=== PATIENT | female | born 1975 | race Hispanic/Latino ===

== ENCOUNTER 2022-02-08 10:55 | Emergency (ER) | payer SELFPAY ==
--- OUTSIDE RECORDS SUMMARY | 2022-02-08 10:58 | XMS REPORT | Continuity of Care Document ---
:1975 Author Organization [facility] t Address [address] [place] [address] Care Team Providers Name Role Phone Sharri Chung Primary Care Physician [phone] SHARRI ANDRES Attending Clinician Unavailable ROWENA JOHNSTON Attending Clinician Unavailable BUSHRA ADAN Attending Clinician Unavailable Rowena Johnston MD Attending Clinician Mimi Patel Attending Clinician Aster Juan PHD Attending Clinician ASTER JUAN Attending Clinician Unavailable 2, [employer] Attending Clinician Unavailable Luther HACKETT Attending Clinician Unavailable Luther Kearney Attending Clinician PRATIBHA RODRIGUEZ Attending Clinician Unavailable Pratibha Kline Attending Clinician [phone] Doctor Unassigned, [place] Attending Clinician Unavailable Lona COLEMAN, [place] Maldonado Attending Clinician Unavailable JEAN PALOMO Attending Clinician Unavailable Jean Freedman Attending Clinician Bala Turner Attending Clinician CRISTOBAL RAMIREZ Attending Clinician Unavailable CRISTOBAL RAMIREZ Attending Clinician Unavailable Maryanne BRYANT, Monica Kramer Attending Clinician Nurse, Adc Pob Immunization Attending Clinician Unavailable Coy Rodriguez MD Attending Clinician COY RODRIGUEZ Attending Clinician Unavailable Crow Garcia DO Attending Clinician Christianne Navarro Attending Clinician CHRISTIANNE DIAZ Attending Clinician Unavailable Sharri Chung Attending Clinician Luther HACKETT Admitting Clinician Unavailable JEAN PALOMO Admitting Clinician Unavailable Payers Payer Name Policy Type Policy Number Effective Date Expiration Date Viktoriya oseguera [employer] [id number] 2021 ZECHARIAH 0-100% 00:00:00 Problems Condition Condition Condition Status Onset Resolution Last Treating Co mments Source Name Details Category Date Date Treatment Clinician Date Vertigo Vertigo Disease Active Overview: Univ ers 3-11 Formattin ity of 00:00: g of this [place] 00 note Medical might be Branch different from the original. Reports she is on meds Morbid Morbid Disease Active 2018-03 Univers obesity obesity 0-24 ity of 00:00: [address] Branch Other Other Disease Active 2018-03 Univers depression depression 0-24 it y of 00:00: [address] Encounter Encounter Disease Active 2017-03 Uni vers for for 0-25 [place]y [place] sam[place] samra 00 Medical management management Br anch , , unspecifie unspecifie d type d type Obesity, Obesity, Disease Active Unive rs unspecifie unspecifie 9-04 it y of d d 00:00: [place] classifica classifica 00 Me dical tion, tion, Branch unspecifie unspecifie d obesity d obesity type, type, unspecifie unspecifie d whether d whether serious serious comorbidit comorbidit y present y present BMI BMI Disease Resolve 2017-032019-01-06 2019-01-06 Univers 39.0-39.9, 39.0-39.9, d 0-25 00:00:00 20:55:49 ity of adult adult 00:00: [address] Routine Routine Disease Resolve 2018-01-06 2018-01-06 Univers d 12-11 00:00:00 23:00:06 [place] of [place] Disease Resolve 2017-12-11 2017-12-11 Univers (spontaneo (spontaneo d 11-19 00:00:00 19:12:48 [place] vaginal [place] vaginal [place] delivery[place] delivery[place] 00 [facility] Single Single Disease Resolve 2017-12-11 2017-12-11 Univers live live d 11-19 00:00:00 19:12:45 ity of 00:00: [place] [address] [facility] Branch Saurabh Troup Disease Resolve 2017-12-11 2017-12-11 Univers [facility] d 9 00:00:00 19:12:29 ity of contractio contractio [place] n n 00 [facility] Branch GBS (group GBS (group Disease Resolve 2017-12-11 2017-12-11 Univers B B d 8-23 00:00:00 19:12:34 ity of streptococ streptococ [place] cus[place] cus) 00 Medical infection infection Bran ch Inmate in Inmate in Disease Resolve 2017-12-11 2017-12-11 Univers correction correction d 7-05 00:00:00 19:12:38 ity of al al 00:00: [place] facility facility 00 Medica l Branch Round Round Disease Resolve 2017-12-11 2017-12-11 Univers ligament ligament d 6-06 00:00:00 19:12:30 it y of pain pain 00:00: [place] [address] Medical Branch Pyelectasi Pyelectasi Disease Resolve 2017-12-11 2017-12-11 Univers s of fetus s of fetus d 5-14 00:00:00 19:12:44 ity of on on 00:00: [place] 00 Medica l ultrasound ultrasound Br anch Flu Flu Disease Resolve 2017-12-11 2017-12-11 Univers vaccine vaccine d 04-16 00:00:00 19:12:33 ity of need need 00:00: [place] 00 Medical Branch Supervisio Supervisio Disease Resolve 2017-12-11 2017-12-11 Univers n of n of d 04-15 00:00:00 19:12:47 ity of high-risk high-risk 00:[place] Med[place] jesus of elderly of elderly Br anch multigravi multigravi da da AMA AMA Disease Resolve 2017-12-11 2017-12-11 Univers (advanced (advanced d 04-15 00:00:00 19:12:31 ity of maternal maternal 00:00: [place] age) age) 00 Medical multigravi multigravi Br anch da 35+ da 35+ Multiparit Multiparit Disease Resolve 2017-12-11 2017-12-11 Univers y y d 04-15 00:00:00 19:12:39 ity of 00:00: [place] 00 Medical Branch History of History of Disease Resolve 2017-12-11 2017-12-11 Univers miscarriag miscarriag d 04-15 00:00:00 19:12:35 ity of e e 00:00: [place] 00 Medical Branch BV BV Disease Resolve 2017-10-27 2017-10-27 Univers (bacterial (bacterial d - 00:00:00 19:00:16 ity of vaginosis) vaginosis[place] Vaginal Vaginal Disease Resolve 2017-10-27 2017-10-27 Univers yeast yeast d 05-13 00:00:00 19:00:13 ity of infection infection [place] Miscarriag Miscarriag Disease Resolve 2017-04-15 2017-04-15 Univers e e d 10-15 00:00:00 22:20:44 ity of 00:00: [place] 00 Medical Branch Retained Retained Disease Resolve 2017-04-15 2017-04-15 Univers products products d 10-15 00:00:00 22:20:43 it y of of of 00:00: [place] conception conception 00 Me dical without without Branch hemorrhage hemorrhage Maternal Maternal Disease Resolve 2016-10-15 2016-10-15 Univers morbid morbid d 09-24 00:00:00 19:55:31 ity of obesity, obesity, 00:00: [place] antepartum antepartum 00 Me dical , , Branch unspecifie unspecifie d d trimester trimester AMA AMA Disease Resolve 2016-10-15 2016-10-15 Univers (advanced (advanced d 09-24 00:00:00 19:55:30 ity of maternal maternal 00:00: [place] age) age) 00 Medical multigravi multigravi Br anch da 35+, da 35+, unspecifie unspecifie d d trimester trimester High risk High risk Disease Resolve 2016-10-15 2016-10-15 Univers , , d 09-24 00:00:00 19:55:28 ity of antepartum antepartum [place] Spotting Spotting Disease Resolve 2016-10-15 2016-10-15 Univers in early in early d 09-24 00:00:00 19:55:33 [place] Depo-Prove Depo-Prove Disease Resolve 2016-09-24 2016-09-24 Univers ra ra d 09-05 00:00:00 14:42:12 ity of contracept [place]pt [place] sam[place] status samra status 00 Me dical Branch Normal Normal Disease Resolve 2015-09-06 2015-09-06 Univers delivery delivery d 12-02 00:00:00 17:51:45 it y of at term at term 00:00: [place] 00 Medical Branch Tubal Tubal Disease Resolve 2015-09-06 2015-09-06 Univers ligation ligation d 11-13 00:00:00 17:53:31 it y of status status 00:00: [place] 00 Medical Branch GBS (group GBS (group Disease Resolve 2015-09-06 2015-09-06 Univers B B d 2- 00:00:00 17:51:39 ity of streptococ streptococ [place] cus[place] UTI cus) UTI 00 Medica l complicati complicati Br anch ng ng Active Active Disease Resolve 2014-12-02 2014-12-02 Univers labor labor d 9 00:00:00 12:26:30 ity of 00:00: [place] 00 [facility] Supervisio Supervisio Disease Resolve 2014-12-02 2014-12-02 Univers n of n of d 2-05 00:00:00 12:26:33 ity of high-risk high-risk 00:[place] Medi jesus of elderly of elderly Br anch multigravi multigravi da da Supervisio Supervisio Disease Resolve 2014-12-01 2014-12-01 Univers n of n of d 11-30 00:00:00 05:47:03 ity of normal normal 00:00: [place] 00 [facility] Branch Lower back Lower back Disease Resolve 2014-12-01 2014-12-01 Univers pain pain d 3-05 00:00:00 05:47:07 ity of 00:00: [place] 00 [facility] Obesity Obesity Disease Resolve 2014-12-01 2014-12-16 Univers complicati complicati d 2-05 00:00:00 00:27:29 ity of ng ng 00:00: [place] , , 00 Me dical childbirth childbirth Br anch , or , or puerperium puerperium , , antepartum antepartum Normal Normal Disease Resolve 2011-032014-04-20 2014-04-20 Univers delivery delivery d - 00:00:00 16:28:22 it y of 00:00: [place] 00 [facility] AMA AMA Disease Resolve 2011-032014-04-20 2014-04-20 Univers (advanced (advanced d 04-04 00:00:00 16:28:24 ity of maternal maternal 00:00: [place] age) age) 00 Medical multigravi multigravi Br anch da 35+ da 35+ Other Other Disease Resolve 2011-032012-02-04 Univ ers threatened threatened d - 00:00:00 ity of labor, labor, 00:00: [place] antepartum antepartum 00 Me dical Branch Tubal Tubal Disease Resolve 2011-032012-02-04 Univ ers ligation ligation d 04-04 00:00:00 ity of status status 00:00: 00 Medical Branch Allergies, Adverse Reactions, Alerts Allergy Allergy Status Severity Reaction(s) Onset Inactive Treating Comm ents Source Name Type Date Date Clinician NO KNOWN Drug Active Univers ALLERGIE Class ity of S [facility] Social History Social Habit Start Date Stop Date Quantity Comments Source Exposure to 2021-08-16 2021-08-26 Not sure [facility] SARS-CoV-2 (event) 00:00:00 14:54:00 Medica l Branch Alcohol intake 2021-08-26 2021-08-26 0 /d [facility] 00:00:00 00:00:00 [facility] Tobacco use and 2012-02-03 2012-02-03 Never used [facility] exposure 00:00:00 00:00:00 Medical Branch Sex [birth year] [facility] 00:00:00 00:00:00 Medical [place] Smoking Status Start Date Stop Date Source Never smoker [facility] Medications Ordered Filled Start Stop Current Ordering Indication Dosage Frequency Signature Comments Components Source Medication Medication Date Date Medication? Clinician (SIG) Name Name propranoloL Yes [id number] 10mg Take 1 Univers 10 mg 6-13 tablet by ity of tablet 00:00: mouth 00 daily. Medical Branch buPROPion Yes [id number] 150mg Take 1 U nivers XL 3-11 tablet by ity of (WELLBUTRIN 00:00: mouth [place] XL) 150 mg 00 daily. Medical 24 hr Branch tablet naproxen 2020-03 Yes [id number] 500mg Take 1 Un krystal 500 mg 1-18 tablet by ity of tablet 00:00: mouth 2 (two) Medical times Branch daily with meals. methocarbam 2020-03 Yes [id number] 500mg Take 1 Univers oL 500 mg 1-18 tablet by ity o f tablet 00:00: mouth 4 00 (four) Medical times Branch daily as needed (muscle pain). methylPREDN Yes [id number] Take by Univers ISolone 4 6-30 mouth ity of mg tablets 00:00: [place]INSTRU [place] CTIONS. Medical follow Branch package directions meclizine Yes [id number] 25mg Take 1 U nivers 25 mg 6-29 tablet by ity of tablet 00:00: mouth [place] 00 every 6 Medical (six) Branch hours as needed for Dizziness. Immunizations Ordered Filled Immunization Date Status Comments Sourc e Immunization Name Name SARS-COV-2 COVID-19 2020-07-19 Completed Unive rsity of PFIZER VACCINE 00:00:00 [facility] SARS-COV-2 COVID-19 2020-07-19 Completed Unive rsity of PFIZER VACCINE 00:00:00 [facility] SARS-COV-2 COVID-19 2020-06-25 Completed Unive rsity of PFIZER VACCINE 00:00:00 [facility] SARS-COV-2 COVID-19 2020-06-25 Completed Unive rsity of PFIZER VACCINE 00:00:00 [facility] Influenza Virus 2019-01-06 Completed Universit y of Vaccine Quad .5 mL 00:00:00 [facility] 6+ MO Branch Influenza Virus 2019-01-06 Completed Universit y of Vaccine Quad .5 mL 00:00:00 [facility] 6+ MO Branch TDAP 2017-09-03 Completed University of 00:00:00 [facility] TDAP 2017-09-03 Completed University of 00:00:00 [facility] Influenza Virus 2017-04-15 Completed Universit y of Vaccine Quad IM 3+ 00:00:00 [facility] Influenza Virus 2017-04-15 Completed Universit y of Vaccine Quad IM 3+ 00:00:00 [facility] TDAP 2014-09-29 Completed University of 00:00:00 [facility] 2014-09-29 Completed University of 00:00:00 [facility] Vital Signs Vital Name Observation Time Observation Value Comments Source Body temperature 2021-08-26 20:07:00 36.67 Patt [facility] Body height 2021-08-26 20:07:[address] [facility] Body weight 2021-08-26 20:07:[address] [facility] BMI 2021-08-26 20:07:00 40.44 kg/m2 [facility] Procedures Procedure Date / Time Performed Performing Clinician Sourc e SARS-COV-2 COVID-19 2020-07-19 19:09:45 Doctor Unassigned, No Un iversity of [place] VACCINE,0.3ML,IM Name Medical Branch (PFIZER) Plan of Care Planned Activity Planned Date Details Comments Source Future Scheduled 2027-09-04 DTaP,Tdap,and Td Univers [facility] Test 00:00:00 Vaccines (3 - Td) Medical Br anch [code = DTaP,Tdap,and Td Vaccines (3 - Td)] Future Scheduled 2020-11-14 [facility] (Season Ended) [code Medical Branch = INFLUENZA VACCINE (Season Ended)] Future Scheduled 2019-04-20 Screening for [facility] Test 00:00:00 malignant neoplasm Medical B ranch of cervix (procedure) [code = 711005983] Future Scheduled 2016 Screening for [facility] Test 00:00:00 malignant neoplasm Medical B ranch of breast (procedure) [code = 071533249] Future Scheduled 1994-01-06 Hepatitis C [facility] Test 00:00:00 screening Medical Branch (procedure) [code = 683548088] Future Scheduled 1988 Depression screening Uni [facility] Test 00:00:00 (procedure) [code = Medical Branch 834835304] Encounters Start End Encounter Admission Attending Care Care Encounter Source Date/Time Date/Time Type Type Clinicians Facility Department ID 2021-01-14 Emergency [facility] [id number] [facility] 2022-05-26 Outpatient R DMITRY [facility] [id number] Univers 15:00:00 15:00:00 SHARRI ity o f [facility] 2022-05-26 2022-05-26 Outpatient R [facility] [id number] Univers 10:00:00 10:00:00 ity [facility] 2021-09-25 2021-09-25 Outpatient R [facility] [id number] Univers 13:45:00 13:45:00 ity [facility] 2021-09-23 2021-09-23 [id number] Univers 14:30:00 14:30:00 [facility] 2021-09-09 2021-09-09 [facility] [id number] Univers 15:15:00 15:15:00 BUSHRA cortez [facility] 2021-08-26 2021-08-26 Office [facility] [id number] Univers 15:00:00 15:30:00 Visit Rowena AGUIRRE [id number] i ty of [place] [id number] [facility] 144 Branch 2021-08-26 2021-08-26 [id number] Univers 15:00:00 15:00:00 ROWENA cortez [facility] 2021-08-05 2021-08-05 Ancillary Mimi Loza [facility] [id number] Univers 15:00:00 17:00:00 Visit Aster Juan 350.1.13.1 0 ity [place]2.[place] [id number] [facility] 371 Branch 2021-08-05 2021-08-05 Outpatient R DRAKE [facility] [id number] Univers 15:00:00 15:00:00 ASTER cortez [facility] 2021-08-05 2021-08-05 Ancillary Dia [employer] [facility] [id number] Univers 11:15:00 12:00:00 Visit Aster Juan 350.1.13.1 0 ity [place]2.[place] [id number] [facility] 141 Branch 2021-08-05 2021-08-05 [facility] [id number] Univers 11:15:00 11:15:00 ASTER cortez [facility] 2021-07-22 2021-07-22 Office [facility] [id number] Univers 10:15:00 10:30:00 Visit Rowena CARLA 350.1.13.10 i ty [place].2.[place] [phone] [facility] 144 Branch 2021-07-22 2021-07-22 Outpatient R VICKIE [facility] [id number] Univers 10:15:00 10:15:00 ROWENA ity [facility] 2021-07-22 2021-07-22 Outpatient R VICKIE [facility] [id number] Univers 10:15:00 10:15:00 ROWENA ity [facility] 2021-07-14 2021-07-14 Emergency X LEW, K [facility] ERT [id number] Univers 15:32:00 21:41:00 ity [facility] 2021-07-14 2021-07-14 Emergency LewLuther [facility] [id number] Univers 15:32:00 21:41:00 Barbara [place] 350.1.13.10 i [facility] 4.2.7.2.686 [place] [facility] [phone] [facility] 084 Branch 2021-07-14 2021-07-14 Emergency X LEW, K [facility] ERT [id number] Univers 15:32:00 21:41:00 ity [facility] 2021-07-02 2021-07-02 Outpatient R WYATT [facility] [id number] Univers 10:00:00 10:54:47 PRATIBHA cortez o f [facility] 2021-07-02 2021-07-02 [facility] [id number] Univers 10:00:00 10:54:47 Visit Pratibha Pleitez [employer]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 ENGINEER 350.1.13.10 ity [facility] 4.2.7.2.686 Say as MATERNAL [phone] Med ical & CHILD [address] [place] [address] 2021-07-02 2021-07-02 Outpatient Vadim RODRIGUEZ [facility] [id number] Univers 10:00:00 10:54:47 PRATIBHA cortez o f [facility] 2021-06-10 2021-06-10 Outpatient Vadim RODRIGUEZ [facility] [id number] Univers 10:15:00 10:15:00 PRATIBHA tangy o f [facility] 2021-06-10 2021-06-10 Outpatient R AVELINAPE, [facility] [id number] Univers 10:15:00 10:15:00 PRATIBHA tangy o f [facility] 2021-05-24 2021-05-24 Outpatient R AKINELIZABETHPE, [facility] [id number] Univers 14:15:00 15:14:27 PRATIBHA tangy o f [facility] 2021-05-24 2021-05-24 Office Wyatt, [facility] [id number] Univers 14:15:00 15:14:27 Visit Pratibha Pleitez 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 ENGINEER 350.1.13.10 ity [facility] 4.2.7.2.686 Say as MATERNAL [id number] Med ical & CHILD [address] [place] [address] 2021-05-24 2021-05-24 Orders Doctor ZULETA [id number] Univers 00:00:00 00:00:00 Only Unassigned, MAYDA 350.1.13.10 ity of [facility] 4.2.7.2.686 Say as [phone] [facility] 009 [place] 2021-05-20 2021-05-20 Outpatient R WYATT, [facility] [id number] Univers 12:45:00 12:45:00 PRATIBHA cortez o [facility] 2021-04-13 2021-04-13 Outpatient R [facility] [id number] Univers 11:30:00 11:30:00 ity of [facility] 2021-02-01 2021-02-01 Letter MERLYN Zamorano [id number] Univers 00:00:00 00:00:00 (Out) Marion OHARA 350.1.13.10 it y of [facility] 4.2.7.2.686 Say as [id number] [facility] 019 Branch 2021-01-31 2021-01-31 Emergency X [facility] ERT [id number] Univers 19:16:00 22:28:00 JEAN ity of [facility] 2021-01-31 2021-01-31 Emergency [facility] [id number] Univers 19:16:00 22:28:00 Jean HAGEN 350.1.13.10 i ty [facility] 4.2.7.2.686 [facility] [id number] [address] 2020-12-26 2020-12-26 Ambulatory nullFlavo MNA [id number] Memoria 20:30:00 20:30:00 Pre-Reg r Neurology 00 [place] 2020-12-26 2020-12-26 Outpatient MHIE MHIE [id number] Memoria 15:30:00 15:30:00 00 [place] 2020-12-26 2020-12-26 Outpatient [facility]ARS [id number] 15:30:00 15:30:00 Bala 00 Abhi 2020-11-27 2020-11-27 Outpatient CRISTOBAL MARTINEZ [facility] [id number] Univers 13:40:00 13:40:00 CRISTOBAL RAMIREZ [facility] 2020-11-27 2020-11-27 Outpatient CRISTOBAL MARTINEZ [facility] [id number] Univers 08:00:00 08:00:00 CRISTOBAL RAMIREZ [facility] 2020-09-11 2020-09-11 Emergency [facility] [id number] Univers 15:05:00 18:50:00 Monica Hagen 350.1.13.10 ity [facility] 4.2.7.2.686 [facility] [id number] [address] 2020-07-19 2020-07-19 Outpatient Vadim RODRIGUEZ [facility] [id number] Univers 13:00:00 13:00:00 COY [facility] 2020-06-25 2020-06-25 Outpatient Vadim RODRIGUEZ [facility] [id number] Univers 13:00:00 13:00:00 COY enedelia [facility] 2020-06-23 2020-06-23 Outpatient Vadim RODRIGUEZ [facility] [id number] Univers 08:30:00 08:30:00 COY cortez [facility] 2020-05-31 2020-05-31 [facility] [id number] Univers 00:00:00 00:00:00 Outreach Crow HOMER 350.1.13.10 i ty of [facility] 4.2.7.2.686 Garrett SAUCEDO [id number] [address] 2019-12-27 2019-12-27 Outpatient R R [facility] [id number] Univers 09:00:00 09:00:00 PRATIBHA cortez o f [facility] 2019-12-27 2019-12-27 Outpatient R [facility] [id number] Univers 08:30:00 08:30:00 ity [facility] 2019-11-24 2019-11-24 Telephone [facility] [id number] Univers 00:00:00 00:00:00 Pratibha Pleitez W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 ENGINEER 350.1.13.10 ity of [facility] 4.2.7.2.686 Say as MATERNAL [id number] Med ical & CHILD [address] [place] [address] 2019-10-31 2019-10-31 Telephone [facility] [id number] Univers 00:00:00 00:00:00 Christianne Simpson W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 ENGINEER 350.1.13.10 it y of [facility] 4.2.7.2.686 Say as MATERNAL [phone] Med ical & CHILD [address] [place] [address] 2019-10-27 2019-10-27 Office [facility] [id number] Univers 08:22:49 09:23:38 Visit Christianne Simpson W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 ENGINEER 350.1.13.10 it y of [facility] 4.2.7.2.686 Say as MATERNAL [id number] Med ical & CHILD [address] [place] [address] 2019-10-27 2019-10-27 [facility] [id number] Univers 08:15:00 08:15:00 CHRISTIANNE cortez [facility] 2019-10-27 2019-10-27 Orders Doctor ZULETA [id number] Univers 00:00:00 00:00:00 Only Unassigned, MAYDA 350.1.13.10 ity of [place] [facility] 4.2.7.2.686 Say as [id number] [address] 2019-10-25 2019-10-25 Telephone LUIS FERNANDO Andres [id number] Univers 00:00:00 00:00:00 Rosmichellendargenis R W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 ENGINEER 350.1.13.10 ity of [facility] 4.2.7.2.686 Say as MATERNAL [phone] Med ical & CHILD 107 [facility] Results Test Description Test Time Test Comments Results Result Comments Source TSH, THIRD GENERATION 2021-07-05 05:58:41 Test Item Value Reference Range Interpretation Comme nts TSH, THIRD GENERATION (test code = 2821) 2.050 UIU/ML 0.400-4.100 COMPREHENSIVE METABOLIC [id number] 04:36:06 Test Item Value Reference Range Interpretation Comments GLUCOSE (test code = 88 MG/DL 70-99 2216) BUN (test code = 10 MG/DL 6-20 2207) CREATININE (test 0.63 MG/DL 0.60-1.30 code = 2214) eGFR (2020 CKD-EPI) 111 >60 (test code = 10386) ML/MIN/1.73 CALC BUN/CREAT (test 16 RATIO 6-28 code = 2235) SODIUM (test code = 139 MEQ/L 050-009 6491) POTASSIUM (test code 5.0 MEQ/L 3.5-5.4 = 2227) CHLORIDE (test code 104 MEQ/L 95-107 = 2215) CARBON DIOXIDE (test 23 MEQ/L 19-31 code = 2206) CALCIUM (test code = 9.6 MG/DL 8.5-10.5 2208) PROTEIN, TOTAL (test 7.0 G/DL 6.1-8.3 code = 2229) ALBUMIN (test code = 4.5 G/DL 3.5-5.2 2200) CALC GLOBULIN (test 2.5 G/DL 1.9-3.7 code = 2240) CALC A/G RATIO (test 1.8 RATIO 1.0-2.6 code = 2234) BILIRUBIN, TOTAL 0.5 MG/DL See_Comment [Automated message] (test code = 2206) The syste m which generated this result transmit gin reference range : <=1.2. The refe rence range was not u sed to interpret th is result as normal/abnormal . ALKALINE PHOSPHATASE 96 U/L 40-116 (test code = 2203) AST (test code = 20 U/L 9-40 2217) ALT (test code = 28 U/L 5-40 2218) LIPID [id number] 04:36:06 Test Item Value Reference Range Interpretation Comments CHOLESTEROL (test 169 MG/DL <200 code = 2210) TRIGLYCERIDES (test 73 MG/DL <150 code = 2232) HDL CHOLESTEROL (test 54 MG/DL >39 code = 2220) CALC LDL CHOL (test 99 MG/DL <100 NOTE: C ALCULATED LDL code = 2237) IS BASED ON NEO-MORRIS METHOD WHICHINCLUDES ADJUSTABLE TRIGLYCERIDE:VL DL CHOLESTEROL RAT IO.THIS FACTOR VARIES B Y MEASURED TRIGLY CERIDE AND NON-HDLCHOL ESTEROL CONCENTRATIONS WITH INCREASED CALCU LATED LDL SEENIN HIGH ER TRIGLYCERIDE OR LOWER NON-HDL SPECIME NS. FOR MOREINFORMATION , SEE CLIENT ANNOUNCE MENT AT [email or web address] LDL/HDL 1.83 RATIO <3.22 (test code = 2237) HEMOGLOBIN [id number] 03:04:21 Test Item Value Reference Range Interpretation Comments HEMOGLOBIN A1c (test 5.5 % 4.2-5.6 UNLESS OTHERWISE code = 65702) INDICATED, ALL TESTING PERFORMED [facility] [address] [place] [id number] DAMIR DEXTER DIRECTOR: Xiomara BRENNANIA NUMBER [id number] CAP ACCREDITATION N O. [id number]
[2022-02-08] MEDS ORDERED: ONDANSETRON 4 MG/2 ML VIAL ONE (11:30)
[2022-02-08] MEDS ORDERED: NA CHLORIDE 0.9% 1,000 ML ONE ×2 (11:30→14:10)
[2022-02-08 11:35] LABS: Urine Blood 2+ (Negative); Urine Glucose Negative (Negative); Urine Protein 1+ (Negative); Urine Specific Gravity >=1.030 (1.005-1.030)
[2022-02-08 11:51] LABS: Hematocrit 41.5 % (36.0-45.0); Lymphocytes % 8.8 % (15.3-44.8); MCV 86.9 fL (80-100); MPV 9.1 fL (7.6-11.3); RBC Red Blood Cell Count 4.77 M/uL (3.86-4.86)
[2022-02-08 12:26] LABS: SARS-COV-2 RT PCR NEGATIVE (NEGATIVE)
[2022-02-08] MEDS ORDERED: MORPHINE 4 MG/ML SYR ONE (12:29)
[2022-02-08 12:48] LABS: Albumin 3.3 g/dL (3.4-5.0); Bilirubin Total 0.7 mg/dL (0.2-1.0); Potassium 3.5 mmol/L (3.5-5.1); Protein, Total 7.1 g/dL (6.4-8.2)
--- NOTE | 2022-02-08 13:32 | RAD REPORT ---
EXAM DESCRIPTION: CTAbdomen Pelvis W Contrast - 02/08/2022 1:23 pm CLINICAL HISTORY: abdominal pain, diarrhea COMPARISON: <Comparisons> TECHNIQUE: CT of the abdomen and pelvis was performed with IV contrast. All CT scans are performed using dose optimization technique as appropriate and may include automated exposure control or mA/KV adjustment according to patient size. FINDINGS: Lower chest: No acute abnormality. Small hiatal hernia Liver: Hepatic steatosis Biliary: No biliary ductal dilatation. Stomach: No significant focal abnormality. Duodenum: No significant focal abnormality. Pancreas: No significant abnormality. Spleen: No significant abnormality. Adrenal: No suspicious lesions. Kidney/ureter: No hydronephrosis. No renal calculi. Retroperitoneum: No retroperitoneal adenopathy. Vascular: No aneurysm. Bowel: Normal appendix. Fluid present within the colon and small bowel.. Peritoneum: No ascites or free air. Small fat and umbilical hernia Bladder: Grossly unremarkable. Reproductive: No adnexal masses. Bones: No acute fracture. Other: n/a IMPRESSION: Nonspecific findings that may reflect a gastroenteritis. No bowel obstruction. Normal ap pendix.
[2022-02-08] MEDS ORDERED: METOCLOPRAMIDE 10 MG/2mL INJ ONE (13:35)
[2022-02-08] MEDS ORDERED: NA CHLORIDE 0.9% 100 ML IV ONE (13:35)
[2022-02-08] MEDS ORDERED: DIPHENHYDRAMINE 50 MG/ML VIAL ONE (13:35)
[2022-02-08 13:39] LABS: Urine Specific Gravity/Preg >1.030 (1.005-1.030)
[2022-02-08 13:40] LABS: Urine Specific Gravity/Preg >1.030 (1.005-1.030)
[2022-02-08] MEDS ORDERED: KETOROLAC 30 MG/ML INJ ONE (14:10)
--- NOTE | 2022-02-08 15:05 | ER ---
Nurse's Notes [facility] Name: Shaniqua Burrell Age: 47 yrs Sex: Female : 1975 Arrival Date: 02/08/2022 Time: 10:59 Bed 24 Private MD: Diagnosis: Gastroenteritis Presentation: 02/08 11:15 Chief complaint: Patient states: Diffuse abdominal pain, nausea, diarrhea, and fever kb3 since last night. Pt reports abdominal pain has resolved but she now has a headache. Coronavirus screen: Vaccine status: Patient reports being unvaccinated. Client denies travel out of the [place] in the last 14 days. Ebola Screen: Patient negative for fever greater than or equal to 101.5 degrees Fahrenheit, and additional compatible Ebola Virus Disease symptoms Patient denies exposure to infectious person. Patient denies travel to an Ebola-affected area in the 21 days before illness onset. Initial Sepsis Screen: Does the patient meet any 2 criteria? No. Patient's initial sepsis screen is negative. Does the patient have a suspected source of infection? No. Patient's initial sepsis screen is negative. Risk Assessment: Do you want to hurt yourself or someone else? Patient reports no desire to harm self or others. Onset of symptoms was February 07, 2022. 11:15 Method Of Arrival: Ambulatory kb3 11:15 Acuity: HERMILA 3 kb3 Triage Assessment: 11:18 General: Appears in no apparent distress. Behavior is calm, cooperative. Pain: kb3 Complains of pain in forehead Pain does not radiate. Pain currently is 10 out of 10 on a pain scale. Quality of pain is described as aching. Neuro: Level of Consciousness is awake, alert, Oriented to person, place, time, situation, Hydrochloric Area Supervisor are equal bilaterally Moves all extremities. Gait is steady, Speech is normal, Facial symmetry appears normal, Reports headache. GI: Abdomen is round Bowel sounds present X 4 quads. Abd is soft and non tender Reports diarrhea, nausea. 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 Last tetanus immunization: unknown. - Social history:: Smoking status: Patient denies any tobacco usage or history of. Screenin:44 Abuse screen: Denies threats or abuse. Denies injuries from another. Nutritional tp1 screening: No deficits noted. Tuberculosis screening: No symptoms or risk factors identified. Fall Risk None identified. Assessment: 11:35 General: Appears in no apparent distress. uncomfortable, Behavior is calm, cooperative. tp1 Pain: Complains of pain in abdomen, head, and eyes Pain does not radiate. Pain currently is 8 out of 10 on a pain scale. Quality of pain is described as sharp, Is continuous. Neuro: Level of Consciousness is awake, alert, obeys commands, Oriented to person, place, time, situation. Cardiovascular: Patient's skin is warm and dry. Respiratory: Airway is patent Respiratory effort is even, unlabored. GI: Abdomen is obese, Abd is soft X 4 quads Abdomen is tender to palpation X 4 quads. Reports diarrhea, nausea, Patient currently denies vomiting. : No signs and/or symptoms were reported regarding the genitourinary system. EENT: No signs and/or symptoms were reported regarding the EENT system. Derm: Skin is pink, warm \T\ dry. Musculoskeletal: Circulation, motion, and sensation intact. 12:20 Reassessment: Patient appears in no apparent distress at this time. No changes from tp1 previously documented assessment. Patient and/or family updated on plan of care and expected duration. Pain level reassessed. Patient is alert, oriented x 3, equal unlabored respirations, skin warm/dry/pink. states nausea has decreased but is still CO ABD pain, provider notified. 13:30 Reassessment: Patient appears in no apparent distress at this time. No changes from tp1 previously documented assessment. Patient is alert, oriented x 3, equal unlabored respirations, skin warm/dry/pink. continues to CO headache, provider notified. 14:04 Reassessment: continues to CO headache rates 8/10, provider notified. tp1 14:40 Reassessment: Patient appears in no apparent distress at this time. No changes from tp1 previously documented assessment. Patient is alert, oriented x 3, equal unlabored respirations, skin warm/dry/pink. states pain is decreased. 15:12 Reassessment: discharge pending completion of IV fluids. tp1 Vital Signs: 11:15 BP 120 / 84; Pulse 99; Resp 20; Temp 99.; Pulse Ox 100% ; Weight 90.72 kg; Height 4 ft. kb3 5 in. (134.62 cm); Pain 0/10; 12:25 BP 117 / 85; Pulse 90; Resp 18; Pulse Ox 100% on R/A; tp1 13:30 BP 102 / 91; Pulse 76; Resp 16; Pulse Ox 99% on R/A; tp1 14:41 BP 115 / 68; Pulse 76; Resp 16; Pulse Ox 100% on R/A; tp1 11:15 Body Mass Index 50.06 (90.72 kg, 134.62 cm) kb3 ED Course: 10:59 Patient arrived in ED. as 11:04 Adria Naylor PA is PHCP. [facility] 11:04 Jai Collado DO is Attending Physician. [facility] 11:18 Triage completed. kb3 11:18 Arm band placed on left wrist. kb3 11:27 Tosha Pringle, JARED is Primary Nurse. tp1 11:36 CMP Sent. mm9 11:36 Lipase Sent. mm9 11:36 Urine --Ancillary (enter results) Sent. mm9 11:37 Patient has correct armband on for positive identification. Placed in gown. Bed in low mm9 position. Call light in reach. Side rails up X 1. Warm blanket given. Pulse ox on. NIBP on. 11:37 CBC with Diff Sent. mm9 11:44 No provider procedures requiring assistance completed. Inserted saline lock: 20 gauge tp1 in right antecubital area, using aseptic technique. 13:24 CT Abd/Pelvis - IV Contrast Only In Process Unspecified. EDMS 15:56 IV discontinued, intact, bleeding controlled, No redness/swelling at site. Pressure tp1 dressing applied. Administered Medications: 11:42 Drug: Zofran (Ondansetron) 4 mg Route: IVP; Site: right antecubital; tp1 12:26 Follow up: Response: Nausea is decreased tp1 11:43 Drug: NS 0.9% 1000 ml Route: IV; Rate: 1 bolus; Site: right antecubital; tp1 15:57 Follow up: IV Status: Completed infusion; IV Intake: 1000ml tp1 12:31 Drug: morphine 4 mg Route: IVP; Infused Over: 4 mins; Site: right antecubital; tp1 13:12 Follow up: Response: Pain is decreased tp1 13:39 Drug: diphenhydrAMINE 12.5 mg Route: IVP; Site: right antecubital; tp1 14:13 Follow up: Response: Pain is unchanged, physician notified tp1 13:41 Drug: Reglan (metoCLOPramide) 10 mg Route: IVP; Site: right antecubital; tp1 14:13 Follow up: Response: Pain is unchanged, physician notified tp1 14:12 Drug: Ketorolac 30 mg Route: IVP; Site: right antecubital; tp1 14:42 Follow up: Response: Pain is decreased tp1 14:12 Drug: NS 0.9% 1000 ml Route: IV; Rate: 1 bolus; Site: right antecubital; tp1 15:57 Follow up: IV Status: Completed infusion; IV Intake: 1000ml tp1 Medication: 11:46 VIS not applicable for this client. tp1 Intake: 15:57 IV: 1000ml; Total: 1000ml. tp1 15:57 IV: 1000ml; Total: 2000ml. tp1 Outcome: 15:04 Discharge ordered by . page 15:56 Discharged to home ambulatory, with family. tp1 15:56 Condition: good 15:56 Discharge instructions given to patient, family, Instructed on discharge instructions, follow up and referral plans. medication usage, Demonstrated understanding of instructions, follow-up care, medications, Prescriptions given X 4. 15:57 Patient left the ED. tp1 Signatures: Dispatcher [employer] EDMS Adria Naylor PA PA jmm Martinez, Amelia as Parker, Tiffany, RN RN tp1 Allison Santana RN RN estrella3 Donna Louise mm9
--- NOTE | 2022-02-08 15:05 | EDPHYS ---
Physician Documentation [facility] Name: Shaniqua Burrell Age: 47 yrs Sex: Female : 1975 Arrival Date: 02/08/2022 Time: 10:59 Bed 24 Private MD: ED Physician Jai Collado HPI: 02/08 11:22 This 47 yrs old Female presents to ER via Ambulatory with complaints of jmm Abdominal Pain, Diarrhea, Headache, Dizziness. 11:22 The patient presents with abdominal pain. Onset: The symptoms/episode began/occurred jmm gradually, 2 day(s) ago. The symptoms do not radiate. Associated signs and symptoms: Pertinent positives: diarrhea. Associated signs and symptoms: Pertinent positives: nausea. The symptoms are described as achy. Modifying factors: The symptoms are alleviated by nothing, the symptoms are aggravated by. Patient also complains of headache. . 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 Last tetanus immunization: unknown. - Social history:: Smoking status: Patient denies any tobacco usage or history of. ROS: 11:22 Constitutional: Negative for fever, chills, and weight loss, Cardiovascular: Negative jmm for chest pain, palpitations, and edema, Respiratory: Negative for shortness of breath, cough, wheezing, and pleuritic chest pain. 11:22 Abdomen/GI: Positive for abdominal pain. 11:22 Neuro: Positive for headache. 11:22 All other systems are negative. Exam: 11:22 Constitutional: This is a well developed, well nourished patient who is awake, alert, jmm and in no acute distress. Head/Face: atraumatic. Eyes: EOMI, no conjunctival erythema appreciated ENT: Moist Mucus Membranes Neck: Trachea midline, Supple Chest/axilla: Normal chest wall appearance and motion. Cardiovascular: Regular rate and rhythm. No edema appreciated Respiratory: Normal respirations, no respiratory distress appreciated 11:22 Back: Normal ROM Skin: General appearance color normal MS/ Extremity: Moves all extremities, no obvious deformities appreciated, no edema noted to the lower extremities Neuro: Awake and alert Psych: Behavior is normal, Mood is normal, Patient is cooperative and pleasant 11:22 Abdomen/GI: Inspection: obese Bowel sounds: normal, Palpation: soft, mild abdominal tenderness, in all quadrants. Vital Signs: 11:15 BP 120 / 84; Pulse 99; Resp 20; Temp 99.; Pulse Ox 100% ; Weight 90.72 kg; Height 4 ft. kb3 5 in. (134.62 cm); Pain 0/10; 12:25 BP 117 / 85; Pulse 90; Resp 18; Pulse Ox 100% on R/A; tp1 13:30 BP 102 / 91; Pulse 76; Resp 16; Pulse Ox 99% on R/A; tp1 14:41 BP 115 / 68; Pulse 76; Resp 16; Pulse Ox 100% on R/A; tp1 11:15 Body Mass Index 50.06 (90.72 kg, 134.62 cm) kb3 MDM: 11:22 Patient medically screened. [facility] 15:03 Data reviewed: vital signs, nurses notes. Counseling: I had a detailed discussion with page the patient and/or guardian regarding: the historical points, exam findings, and any diagnostic results supporting the discharge/admit diagnosis, the need for outpatient follow up, to return to the emergency department if symptoms worsen or persist or if there are any questions or concerns that arise at home. 15:03 ED course: Pain has resolved in the ED. Advised to follow up with pcp and otherwise jmm given strict return precautions. Patient understood and agrees with the plan of care. . 02/08 11:22 Order name: CBC with Diff; Complete Time: 11:52 [facility] 02/08 11:22 Order name: CMP; Complete Time: 12:48 [facility] 02/08 11:22 Order name: Lipase; Complete Time: 12:48 [facility] 02/08 11:23 Order name: COVID-19/FLU A+B; Complete Time: 12:31 [facility] 02/08 11:35 Order name: Urine --Ancillary (enter results); Complete Time: 13:41 em1 02/08 11:35 Order name: Urine Dipstick-Ancillary; Complete Time: 11:47 [facility] 02/08 12:21 Order name: CT Abd/Pelvis - IV Contrast Only; Complete Time: 13:36 [facility] 02/08 12:38 Order name: Urine --Ancillary (enter results); Complete Time: 13:41 [facility] 02/08 11:22 Order name: IV Saline Lock; Complete Time: 11:36 [facility] 02/08 11:22 Order name: Labs collected and sent; Complete Time: 11:36 [facility] 02/08 11:22 Order name: Urine Dipstick-Ancillary (obtain specimen); Complete Time: 11:34 [facility] 02/08 11:22 Order name: Urine Test (obtain specimen); Complete Time: 11:34 [facility] 02/08 12:05 Order name: Misc. Order: recollect; Complete Time: 12:26 em1 Administered Medications: 11:42 Drug: Zofran (Ondansetron) 4 mg Route: IVP; Site: right antecubital; tp1 12:26 Follow up: Response: Nausea is decreased tp1 11:43 Drug: NS 0.9% 1000 ml Route: IV; Rate: 1 bolus; Site: right antecubital; tp1 15:57 Follow up: IV Status: Completed infusion; IV Intake: 1000ml tp1 12:31 Drug: morphine 4 mg Route: IVP; Infused Over: 4 mins; Site: right antecubital; tp1 13:12 Follow up: Response: Pain is decreased tp1 13:39 Drug: diphenhydrAMINE 12.5 mg Route: IVP; Site: right antecubital; tp1 14:13 Follow up: Response: Pain is unchanged, physician notified tp1 13:41 Drug: Reglan (metoCLOPramide) 10 mg Route: IVP; Site: right antecubital; tp1 14:13 Follow up: Response: Pain is unchanged, physician notified tp1 14:12 Drug: Ketorolac 30 mg Route: IVP; Site: right antecubital; tp1 14:42 Follow up: Response: Pain is decreased tp1 14:12 Drug: NS 0.9% 1000 ml Route: IV; Rate: 1 bolus; Site: right antecubital; tp1 15:57 Follow up: IV Status: Completed infusion; IV Intake: 1000ml tp1 Disposition: 15:16 Co-signature as Attending Physician, Jai Collado DO I was immediately available on-site ms3 in the Emergency Department for consultation in the care of the patient. Disposition Summary: 02/08/22 15:04 Discharge Ordered Location: Home [facility] Condition: Stable [facility] Diagnosis - Gastroenteritis [facility] Followup: [facility] - With: Private Physician - When: 2 - 3 days - Reason: Recheck today's complaints, Continuance of care, Re-evaluation by your physician Discharge Instructions: - Discharge Summary Sheet [facility] - Viral Gastroenteritis, Adult [facility] Forms: - Medication Reconciliation Form [facility] - Thank You Letter [facility] - Antibiotic Education [facility] - Prescription Opioid Use [facility] Prescriptions: - ondansetron 4 mg Oral tablet,disintegrating - take 1 tablet by ORAL route every 4-6 hours As needed; 20 tablet; Refills: 0, [facility] Product Selection Permitted - dicyclomine 20 mg Oral Tablet - take 1 tablet by ORAL route 4 times per day As needed; 30 tablet; Refills: 0, [facility] Product Selection Permitted - Pepcid 20 mg Oral Tablet - take 1 tablet by ORAL route every 12 hours for 10 days; 20 tablet; Refills: 0, [facility] Product Selection Permitted - Diclofenac Sodium 75 mg Oral Tablet Sustained Release - take 1 tablet by ORAL route 2 times per day; 30 tablet; Refills: 0, Product [facility] Selection Permitted Signatures: Dispatcher [employer] EDAdria Small PA PA jmm Martinez, Eric em1 Jai Collado, DO SCHRADER ms3 Tosha Pringle, RN RN tp1 Allison Santana RN RN kb3
[2022-02-08 16:03] VITALS: TEMP 99
[2022-02-08 16:07] VITALS: BP 115/68; O2SAT 100
== END 2022-02-08 15:57 | disposition home or self-care (01) ==
LOC: ER 10:55
DX: K52.9 Noninfective gastroenteritis and colitis, unspecified (principal)
CPT/HCPCS: 0240U; 36415; 74177; 80053; 81003; 81025; 83690; 85025; 96361; 96374; 96375; 99284; J1200; J2405; J2765; J7030; Q9967